=== PATIENT | male | born 1950 | race Caucasian/White ===

== ENCOUNTER 2017-02-11 10:12 | Day surgery (SDC) | payer MEDICARE, MEDICAID ==
[~2017-02-11] VITALS: Ht 170.2 cm; Wt 79.3 kg
[2017-02-11] MEDS ORDERED: METF1000 PO (11:16)
[2017-02-11] MEDS ORDERED: ALEN70TA30 PO (11:16)
[2017-02-11] MEDS ORDERED: RAMI5CAP46 PO (11:17)
[2017-02-11] MEDS ORDERED: RANO10002 PO (11:18)
[2017-02-11] MEDS ORDERED: INSU200I4 SQ (11:20)
[2017-02-11] MEDS ORDERED: DULA1.5P SQ (11:23)
[2017-02-11] MEDS ORDERED: FENO145T19 PO (11:24)
[2017-02-11] MEDS ORDERED: BUPR150T6 PO (11:25)
[2017-02-11] MEDS ORDERED: VENL75CA89 PO (11:25)
[2017-02-11] MEDS ORDERED: VENL150C94 PO (11:25)
[2017-02-11] MEDS ORDERED: UMEC1DIS INHALATION (11:26)
[2017-02-11] MEDS ORDERED: METO-448 PO (11:26)
[2017-02-11 11:29] VITALS: BP 119/63; PULSE 77; RESP 16
[2017-02-11 11:34] VITALS: Ht 170.2 cm; Wt 79.3 kg
--- NOTE | 2017-02-11 11:51 | RADRPT ---
PROCEDURE: XR Chest. CLINICAL INDICATION: Chest pain and heart catheterization TECHNIQUE: AP Portable chest. COMPARISON: None available FINDINGS: Mild thoracic spondylosis is present. Mild bilateral interstitial edema is present. Mild cardiomegal y and vascular calcifications of the thoracic aorta are noted. No focal infiltrates, masses or effus ions are present. No pneumothorax is present. IMPRESSION: 1. Mild cardiogenic pulmonary venous hypertension 2. Mild cardiomegaly and atherosclerotic vascular disease 3. Mild thoracic spondylosis RPTAT: HDC .Jovita López MD, MD Date Time Electronically viewed and signed by .Jovita López MD, MD on 02/11/2017 11:51 .C/
[2017-02-11 12:13] LABS: BASOPHILS % 0.4 % (0.0-2.0); EOSINOPHILS # 0.2 10^3/ul (0.0-0.5); EOSINOPHILS % 2.1 % (0.0-7.0); HEMATOCRIT 39.7 % (42.0-52.0); HEMOGLOBIN 13.2 g/dl (14.0-18.0); LYMPHOCYTES # 1.8 10^3/ul (0.8-2.9); LYMPHOCYTES % 22.8 % (15.0-51.0); MEAN CORPUSCULAR HEMOGLOBIN 32.1 pg (29.0-33.0); MEAN CORPUSCULAR HGB CONC 33.2 g/dl (32.0-37.0); MEAN CORPUSCULAR VOLUME 96.6 fl (82.0-101.0); MONOCYTE # 0.5 10^3/ul (0.3-0.9); MONOCYTES % 6.4 % (0.0-11.0); NEUTROPHIL # 5.3 10^3/ul (1.6-7.5); PLATELET COUNT 151 10^3/UL (140-415); RED BLOOD COUNT 4.11 10^6/ul (4.70-6.10); RED CELL DISTRIBUTION WIDTH 13.2 % (11.5-14.5); WHITE BLOOD COUNT 7.7 10^3/ul (4.8-10.8)
[2017-02-11] MEDS ORDERED: MIDAZOLAM 1 MG/ML 2 ML INJ ONE (12:29)
[2017-02-11] MEDS ORDERED: FENTAnyl 50 MCG/ML VIAL ONE (12:29)
[2017-02-11 12:38] LABS: INR 0.98
[2017-02-11 12:41] LABS: ALBUMIN/GLOBULIN RATIO 1.53; BILIRUBIN,INDIRECT 0.1 mg/dl (0-1.1); BILIRUBIN,TOTAL 0.1 mg/dl (0.2-1.3); TOTAL PROTEIN 6.6 g/dl (6.1-8.1)
[2017-02-11 12:48] LABS: CALCIUM 9.1 mg/dl (8.4-10.2); CREATININE 0.87 mg/dl (0.61-1.24)
[2017-02-11] MEDS ORDERED: IODIXANOL LOCM 100 ML BTL ONE (12:49)
[2017-02-11] MEDS ORDERED: LIDOCAINE 1% (MDV) 20 ML INJ ONE (12:49)
--- NOTE | 2017-02-11 13:01 | SIPON ---
Date/Time of Note Date/Time of Note DATE: 02/11/17 TIME: 13:00 Operative Report Preoperative Diagnosis cad Postoperative Diagnosis cad Operation/Procedure Performed l cath lv sam Surgeon see signature line biology research assistant none Anesthesia: moderate sedation Estimated blood loss: minimal Transfusion Required none Specimen none Grafts/Implants none Complications none RHODA MCCANN MD Feb 11, 2017 13:01
[2017-02-11] MEDS ORDERED: NITROGLYCERIN (SL) 0.4 MG TAB ONE (13:02)
[2017-02-11 13:13] VITALS: BP 140/75; PULSE 67; RESP 16
[2017-02-11 13:18] VITALS: BP 154/75; PULSE 68; RESP 16
[2017-02-11 13:30] VITALS: BP 163/81; PULSE 61; RESP 18
[2017-02-11] MEDS ORDERED: [UNRECOGNIZED DRUG - REMARK] XX SCH (13:30)
[2017-02-11] MEDS ORDERED: METOPROLOL 25 MG TAB PO SCH (13:30)
[2017-02-11] MEDS ORDERED: BENAZEPRIL 20 MG TAB PO SCH (13:30)
[2017-02-11] MEDS ORDERED: UMECLIDINIUM XX SCH (13:30)
[2017-02-11] MEDS ORDERED: DEXTROSE 5%-0.9% NACL 1,000 ML IV SCH (13:30)
[2017-02-11] MEDS ORDERED: VENLAFAXINE (XR) 75 MG CAP PO SCH (13:30)
[2017-02-11] MEDS ORDERED: VILANTEROL XX SCH (13:30)
[2017-02-11] MEDS ORDERED: NON-FORMULARY/PATIENT OWN MED (Dulaglutide (Trulicity) 1.5 MG) XX SCH (13:30)
[2017-02-11] MEDS ORDERED: RANOLAZINE (SR) 500 MG TAB PO SCH (13:30)
[2017-02-11] MEDS ORDERED: [UNRECOGNIZED DRUG - REMARK] XX SCH (13:30)
--- NOTE | 2017-02-11 13:48 | SP ---
DATE OF PROCEDURE: PROCEDURE: 1. Left cardiac catheterization. 2. Ventriculography. 3. Left internal mammary angiography not connect to the coronary circulation. 4. Femoral arteriography. 5. [employer]. Having obtained informed consent, the patient was brought to cardiac catheterization laboratory, pre pped in the usual fashion. 1% lidocaine was applied to the right groin, using single puncture at the femoral artery, sheath was advanced followed by right Karin coronary catheter, selective a rteriography and visualization of left internal mammary artery. This was changed for left coronary catheter for left coronary arteriography. This was exchanged for a pigtail catheter for ventriculog darius and a pullback. Upon completion of the procedure, wire sheath catheter removed. Hemostasis obtained by [employer] te chnique after femoral arteriography. MEDICATIONS: Versed 1 mg, fentanyl 25 mg, both done x2. CONTRAST: Approximately 100 mL. COMPLICATIONS: None. RESULTS: Please see hemodynamic data sheet on ventriculography, in the GARCIA projection, there is no segmental wall motion abnormality. Ejection fraction 55%. CORONARY ARTERIOGRAPHY: The left main has some mid calcium but no flow restrictive lesion. The LAD is a large vessel that extends across the apex. The first diagonal is small vessel, has proximal d isease of approximately 70%. Circumflex is a large vessel. There is a 30% mid lesion narrowing. T here is a small ramus with a 90% proximal narrowing and small vessel and does not continue onward. The right coronary artery is large at 30% mid lesion, there is 100% chronic total occlusion of the P DA. The posterolateral branch has a 90% lesion followed by another 90% lesion 2/[address] its course, followed by diffuse disease, subsequently. IMPRESSION 1. Coronary artery disease. Patient is having classical symptoms of exertional angina and after me als. He had a CT coronary angiogram revealing a significant 3-vessel disease. On coronary arteriog darius there is no flow restrictive disease in vessels that are amenable to intervention. Medication s will be maximized. 2. Diabetes. Metformin is being held for 48 hours. 3. Smoking. Patient has been advised again to discontinue. Dictated By: RHODA MCCANN MD, JR/BERTA Conf#: [id number] DID#: [id number]
[2017-02-11] MEDS ORDERED: INSULIN DEGLUDEC 40 UNIT XX SCH (21:00)
[2017-02-12] MEDS ORDERED: BUPROPION (XL) 150 MG TAB PO SCH (09:00)
[2017-02-12] MEDS ORDERED: FENOFIBRATE 145 MG TAB PO SCH (09:00)
[2017-02-12] MEDS ORDERED: NON-FORMULARY/PATIENT OWN MED (Umeclidinium Brm-Vilanterol Tr (Anoro Ellipta) 1 EACH) XX SCH (09:00)
[2017-02-12] MEDS ORDERED: VENLAFAXINE (XR) 75 MG CAP PO SCH (09:00)
== END 2017-02-11 16:00 | disposition home or self-care (01) ==
LOC: SDS 10:12
PROVIDERS: ATTEND Internal Medicine Interventional Cardiology
DX: I25.10 Atherosclerotic heart disease of native coronary artery without angina pectoris (principal); E11.9 Type 2 diabetes mellitus without complications; F17.200 Nicotine dependence, unspecified, uncomplicated
CPT/HCPCS: 71010; 80053; 82962; 85025; 85610; 85730; 93458; C1760; C1887; C1894; J1644; J2250; J3010; Q9967